=== PATIENT | male | born 1975 | race African-American/Black ===

== ENCOUNTER 2019-03-06 01:29 | Inpatient (IN) | payer SELFPAY ==
[2019-03-06] MEDS ORDERED: VANCOMYCIN HCL INJ 1000 MG VIAL IV ONE (04:01)
[2019-03-06] MEDS ORDERED: CEFEPIME 2 GM/D5W RTU 2 GM/50 ML RTUPB IV ONE (04:02)
--- NOTE | 2019-03-06 04:04 | ER Document Report ---
ED Extremity Problem, Lower - General Chief Complaint: Wound Infection Stated Complaint: TOE PAIN Time Seen by Provider: 03/06/19 03:55 Notes: Patient is a 43-year-old male with a history of type 2 diabetes that comes to the emergency department for chief complaint of swelling and pain to the left foot. He states he had a blister that developed between the great toe and the second toe, this popped and then the area started swelling and worsening. He states he does have some neuropathy and he does not feel much in his foot. He states he is constantly on his feet at his job. He denies fever/chills. Only medical history reported otherwise his hyperlipidemia. Reports his tetanus is up-to-date within 5 years. He smokes. TRAVEL OUTSIDE OF THE [place] IN LAST 30 DAYS: No - Related Data Allergies/Adverse Reactions: No Known Allergies Allergy (Unverified 03/06/19 02:15) Past Medical History - General Information source: Patient - Social History Smoking Status: Current Every Day Smoker Smoking Education Provided: Yes - <3 min Drug Abuse: None Lives with: Family Family History: Reviewed & Not Pertinent Endocrine Medical History: Reports: Hx Diabetes Mellitus Type 2 - Immunizations Hx Diphtheria, Pertussis, Tetanus Vaccination: Yes Review of Systems - Review of Systems Constitutional: No symptoms reported EENT: No symptoms reported Cardiovascular: No symptoms reported Respiratory: No symptoms reported Gastrointestinal: No symptoms reported Genitourinary: No symptoms reported Male Genitourinary: No symptoms reported Musculoskeletal: See HPI Skin: See HPI Hematologic/Lymphatic: No symptoms reported Neurological/Psychological: No symptoms reported Physical Exam - Vital signs Vitals: Temp Pulse Resp BP Pulse Ox 98.2 F 122 H 20 150/90 H 100 03/06/19 02:19 03/06/19 02:19 03/06/19 02:19 03/06/19 02:03/06/19 02:19 - Notes Notes: GENERAL: Anxious but alert and otherwise well-appearing HEAD: Normocephalic, atraumatic. EYES: Pupils equal, round, and reactive to light. Extraocular movements intact. ENT: Oral mucosa moist, tongue midline. Oropharynx unremarkable. Airway patent. Nares patent, no nasal septal hematoma, TM's intact. NECK: Full range of motion. Supple. Trachea midline. LUNGS: Clear to auscultation bilaterally, no wheezes, rales, or rhonchi. No respiratory distress. HEART: Tachycardia, normal rhythm, no murmur ABDOMEN: Soft, non-tender. Non-distended. Bowel sounds present in all 4 quadrants. GENITOURINARY: Deferred EXTREMITIES: Right lower extremity with a swollen and tender foot. Pulses intact. Extremely swollen, discolored, and also purulent aspect of the edge of the right great toe and also over the dorsal aspect. Widespread skin breakdown in addition to this. Sensation is decreased. BACK: no cervical, thoracic, lumbar midline tenderness. No saddle anesthesia, normal distal neurovascular exam. Moves all extremities in full range of motion. NEUROLOGICAL: Alert and oriented x3. Normal speech. Cranial nerves II through XII grossly intact. SKIN: Warm, dry, normal turgor. No rashes or lesions noted. Course - Re-evaluation Re-evalutation: Patient's foot is very concerning, the whole right foot is swollen, there is erythema and warmth consistent with infection, the great toe is very swollen, purulent, probably gangrenous. Patient is tachycardic but not febrile. Blood pressure is normal. CBC shows leukocytosis, hyperglycemia, no acidosis. X-ray showing small fracture, subcutaneous air, no osteomyelitis noted. Started patient on vancomycin and cefepime. Will consult with surgery. 03/06/19 06:42 Dr. Quach states that he will evaluate the patient for likely amputation procedure. He does recommend that because of his swollen foot, infection, diabetes status that he be admitted to the hospitalist with surgery consult. I spoke to Dr. France, on-call for Dr. Kimble patient's provider, patient accepted to telemetry. Patient states agreement with this plan. - Vital Signs Vital signs: Temp Pulse Resp BP Pulse Ox 99.1 F 122 H 16 136/84 H 98 03/06/19 07:58 03/06/19 02:19 03/06/19 08:01 03/06/19 08:01 03/06/19 08:01 - Laboratory Result Diagrams: 03/06/19 04:35 03/06/19 04:35 Laboratory results interpreted by me: 03/06/19 03/06/19 03/06/19 04:35 04:35 07:52 WBC 15.4 H Hgb 12.3 L Hct 37.8 L Lymphocytes % 8.0 L Absolute Neutrophils 11.7 H Absolute Monocytes 1.8 H Sodium 136.8 L Chloride 97 L Glucose 368 H POC Glucose 320 H Discharge - Discharge Clinical Impression: Swelling of right foot, Diabetic foot infection, Toe infection, Hyperglycemia Condition: Fair Disposition: ADMITTED INPATIENT Admitting Provider: Román Kimble Unit Admitted: Telemetry
[2019-03-06] MEDS ORDERED: MORPHINE SULFATE 10 MG/ML INJ IV ONE (04:08)
[2019-03-06] MEDS ORDERED: ONDANSETRON HCL INJ/PF 4 MG/2 ML SDV IV ONE (04:08)
[2019-03-06 05:17] LABS: ABSOLUTE BASOPHILS # (AUTO) 0.1 10^3/uL (0.0-0.2); ABSOLUTE EOSINOPHILS # (AUTO) 0.6 10^3/uL (0.0-0.6); ABSOLUTE LYMPHOCYTES (AUTO) 1.2 10^3/uL (0.5-4.7); ABSOLUTE MONOCYTES (AUTO) 1.8 10^3/uL (0.1-1.4); ABSOLUTE NEUT (AUTO) 11.7 10^3/uL (1.7-8.2); BASOPHILS % (AUTO) 0.6 % (0-2); EOSINOPHILS % (AUTO) 3.8 % (0-6); HEMATOCRIT 37.8 % (37.9-51.0); HEMOGLOBIN 12.3 g/dL (13.5-17.0); MEAN CORPUSCULAR HEMOGLOBIN 27.1 pg (27.0-33.4); MEAN CORPUSCULAR HGB CONC 32.6 g/dL (32.0-36.0); MEAN CORPUSCULAR VOLUME 83 fl (80-97); MONOCYTES % (AUTO) 11.6 % (3-13); PLATELET COUNT 428 10^3/uL (150-450); RED BLOOD COUNT 4.55 10^6/uL (4.35-5.55); RED CELL DISTRIBUTION WIDTH 12.6 % (11.5-14.0); TOTAL CELLS COUNTED % (AUTO) 100 %; WHITE BLOOD COUNT 15.4 10^3/uL (4.0-10.5)
[2019-03-06 05:34] LABS: ANION GAP 11 (5-19); BLOOD UREA NITROGEN 7 mg/dL (7-20); CALCIUM 9.6 mg/dL (8.4-10.2); CARBON DIOXIDE 29 mmol/L (22-30); CHLORIDE 97 mmol/L (98-107); GLUCOSE 368 mg/dL (75-110); POTASSIUM 4.8 mmol/L (3.6-5.0); SODIUM 136.8 mmol/L (137-145)
[2019-03-06] MEDS ORDERED: NORMAL SALINE 1000 ML 1,000 ML IV ONE (05:50)
--- NOTE | 2019-03-06 05:52 | RADIOLOGY REPORT (SQ) ---
EXAM DESCRIPTION: XR FOOT 3 OR MORE VIEWS COMPLETED DATE/TME: 03/06/2019 04:01 CLINICAL HISTORY: 43 years, Male, swelling, diabetic infection, ?fx, ?gas COMPARISON: None. NUMBER OF VIEWS: Four TECHNIQUE: Four views of the right foot LIMITATIONS: None. FINDINGS: There is soft tissue swelling with subcutaneous emphysema in involving the great toe. There is a nondisplaced fracture involving the tip of the first distal phalanx. The joint spaces are preserved. No definite erosion or periosteal reaction is identified. IMPRESSION: Fracture involving the tip of the first distal phalanx with surrounding soft tissue swelling with subcutaneous emphysema. No definite radiographic evidence of osteomyelitis. copyright 2010 [employer]- All Rights Reserved
[2019-03-06 10:59] LABS: APPEARANCE,URINE CLEAR; BILIRUBIN,URINE NEGATIVE (NEGATIVE); COLOR,URINE STRAW; GLUCOSE, URINE 500 mg/dL (NEGATIVE); KETONES,URINE 25 mg/dL (NEGATIVE); URINE SPECIFIC GRAVITY 1.029
[2019-03-06 11:01] LABS: LEUKOCYTE ESTERASE,URINE NEGATIVE (NEGATIVE); NITRITE,URINE NEGATIVE (NEGATIVE); PROTEIN,URINE 30 mg/dL (NEGATIVE); UROBILINOGEN,URINE NEGATIVE mg/dL (<2.0)
[2019-03-06] MEDS ORDERED: DEXTROSE 50%-WATER SYRINGE 12.5 GM/25 ML DOSE IV PRN (12:00)
[2019-03-06] MEDS ORDERED: DEXTROSE 50%-WATER SYRINGE 25 GM/50 ML DOSE IV PRN (12:00)
[2019-03-06] MEDS ORDERED: GLUCAGON,HUMAN RECOMB 1 MG INJ IM PRN ×2 (12:00→14:32)
[2019-03-06] MEDS ORDERED: DEXTROSE 40% GEL 15 GM TUBE PO PRN ×3 (12:00→14:32)
[2019-03-06] MEDS ORDERED: DEXTROSE 40% GEL 15 GM TUBE X 2 PO PRN (12:00)
[2019-03-06] MEDS ORDERED: ONDANSETRON HCL INJ/PF 4 MG/2 ML SDV ONE (13:14)
[2019-03-06] MEDS ORDERED: FENTANYL CITRATE INJ/PF 100 MCG/2 ML AMPUL ONE (13:14)
[2019-03-06] MEDS ORDERED: PROPOFOL INJ 200 MG/20 ML VIAL IV ONE (13:14)
[2019-03-06] MEDS ORDERED: MIDAZOLAM 2 MG/2 ML INJ ONE (13:14)
[2019-03-06] MEDS ORDERED: MEPERIDINE HCL/PF INJ 25 MG/1 ML DISP.SYRIN IV PRN (13:15)
[2019-03-06] MEDS ORDERED: DIPHENHYDRAMINE HCL 50 MG/ML VIAL IV PRN (13:15)
[2019-03-06] MEDS ORDERED: FENTANYL CITRATE INJ/PF 100 MCG/2 ML AMPUL IV PRN ×3 (13:15)
[2019-03-06] MEDS ORDERED: PROMETHAZINE HCL INJ 25 MG/1 ML VIAL IV PRN (13:15)
[2019-03-06] MEDS ORDERED: BUPIVACAINE HCL 0.25 % INJ/PF (2.5 MG/1 ML) 30 ML VIAL ONE (13:29)
[2019-03-06] MEDS ORDERED: LIDOCAINE 1% INJ-PF (10 MG/ML) 30 ML SDV ONE (13:29)
[2019-03-06] MEDS ORDERED: VANCOMYCIN HCL 0 MG in DEXTROSE 5%-WATER 250 ML IV NR ×2 (14:30→19:00)
[2019-03-06] MEDS ORDERED: DEXTROSE 50%-WATER 25 GM/50 ML DISP.SYRIN IV PRN ×2 (14:32)
[2019-03-06] MEDS ORDERED: INSULIN LISPRO 100 UNIT/ML 3 ML VIAL ONE (14:38)
[2019-03-06] MEDS ORDERED: INSULIN LISPRO 100 UNIT/ML 3 ML VIAL SUBCUT SCH (16:00)
[2019-03-06] MEDS: HYDROCODONE/ACETAMINOPHEN 10-325 MG TABLET PO PRN ×2 (16:03→20:27)
--- NOTE | 2019-03-06 17:03 | Operative Report ---
Nonrecallable Operative Report DATE OF SURGERY: 03/06/19 PREOPERATIVE DIAGNOSIS: 1. Severe diabetic foot infection. 2. Unsalvageable right great toe. POSTOPERATIVE DIAGNOSIS: Same as above OPERATION: Ray amputation of the right great toe. SURGEON: HOLDEN TONEY ANESTHESIA: LMAC TISSUE REMOVED OR ALTERED: Right great toe. Wound culture. COMPLICATIONS: None apparent ESTIMATED BLOOD LOSS: 20 cc PROCEDURE: Drains/implants: 4 x 4 gauze, soaked in Betadine. Procedure in detail: After informed consent was obtained, the patient was brought into the operating room and laid in the supine position. The area of the right foot was prepped and draped in a normal sterile fashion. A 10 blade scalpel was used to create a tennis racquet incision on the dorsum of the foot, over the right first metatarsal head. Dissection was carried through the subcutaneous tissue to the bone, using sharp dissection. Next the right great toe was disarticulated from the MTP joint. There was a moderate amount of purulent material surrounding the MTP joint. The toe was passed off the field, and deep tissue wound culture was obtained. After this was completed, the metatarsal head was divided using the reciprocating bone saw. Next, hemostasis was achieved. The proximal portion of the wound was closed using 2-0 Vicryl suture in simple interrupted fashion. The distal portion of the wound was left open and was packed with 4 x 4 gauze, soaked in Betadine. A dressing was then fashioned, and the procedure was concluded. All sponge, instrument, and needle counts were correct. Condition: Stable.
--- NOTE | 2019-03-06 17:12 | PDOC CONSULTATION ---
Consultation Consult Date: 03/06/19 Provider Consulted: SURGICAL SURGICALIST Consult reason:: diabetic foot infection History of Present Illness Admission Date/PCP: 03/06/19 08:08 RANJITH LYNN MD Patient complains of: Infection of the right great toe, hyperglycemia History of Present Illness: CHERRIE YUAN JR is a 43 year old male seen in consultation at the request of the Emergency Department physician. This is a patient with poorly controlled diabetes. He reports a one-week history of an ulcer to the right great toe. The ulcer became worse, and the toe began to swell. He then noticed copious amounts of purulent drainage. Patient began having swelling and erythema extending up the foot and onto the leg. Nothing makes his symptoms better or worse. The patient presents today for evaluation of his foot. Patient does report pain of the right great toe and swelling of the right foot. He denies chest pain, shortness of breath, headache, dizziness, orthostasis, malaise, fatigue, anorexia, blurry vision, melena, hematochezia, hematemesis, nausea, vomiting, abdominal pain. Past Medical History Endocrine Medical History: Reports: Diabetes Mellitus Type 2 Social History Lives with: Family Smoking Status: Current Every Day Smoker Hx Recreational Drug Use: No Hx Prescription Drug Abuse: No Family History Family History: Reviewed & Not Pertinent Parental Family History Reviewed: Yes Children Family History Reviewed: Yes Sibling(s) Family History Reviewed.: Yes Medication/Allergy Home Medications: No Home Medications 03/06/19 Allergies/Adverse Reactions: No Known Allergies Allergy (Unverified 03/06/19 02:15) Review of Systems Constitutional: ABSENT: anorexia, headache(s), weakness Eyes: ABSENT: visual disturbances Ears: ABSENT: hearing changes Nose, Mouth, and Throat: ABSENT: mouth pain, sore throat Cardiovascular: ABSENT: chest pain Respiratory: ABSENT: cough, dyspnea Gastrointestinal: ABSENT: abdominal pain, heartburn, hematemesis, hematochezia, melena, nausea, vomiting Genitourinary: ABSENT: dysuria Musculoskeletal: ABSENT: back pain Integumentary: PRESENT: erythema - Right great toe, wounds - Right great toe Neurological: ABSENT: confusion, convulsions, dizziness Psychiatric: ABSENT: anxiety, depression Endocrine: ABSENT: cold intolerance, heat intolerance Hematologic/Lymphatic: ABSENT: easy bleeding, easy bruising Physical Exam Vital Signs: Temp Pulse Resp BP Pulse Ox 98.6 F 122 H 11 L 113/73 96 03/06/19 11:07 03/06/19 02:19 03/06/19 11:00 03/06/19 11:01 03/06/19 11:01 Intake & Output 03/05/19 03/06/19 03/07/19 06:59 06:59 06:59 Intake Total 1050 Output Total 1000 Balance 50 Weight 97.7 kg General appearance: PRESENT: no acute distress Head exam: PRESENT: atraumatic, normocephalic Eye exam: PRESENT: EOMI, PERRLA. ABSENT: scleral icterus Mouth exam: PRESENT: moist, neck supple Teeth exam: ABSENT: poor dentation Neck exam: ABSENT: meningismus, tenderness, thyromegaly, tracheal deviation Respiratory exam: PRESENT: clear to auscultation theresa, unlabored. ABSENT: chest wall tenderness, tachypnea, wheezes Cardiovascular exam: PRESENT: RRR Pulses: PRESENT: normal radial pulses, other - Palpable right lower extremity dorsalis pedis pulse. GI/Abdominal exam: PRESENT: soft. ABSENT: distended, tenderness Extremities exam: PRESENT: +2 edema - Right foot. ABSENT: clubbing Neurological exam: PRESENT: alert, awake, oriented to person, oriented to place, oriented to time, oriented to situation, CN II-XII grossly intact. ABSENT: motor sensory deficit Psychiatric exam: ABSENT: agitated, anxious, depressed Focused psych exam: ABSENT: delusional Skin exam: ABSENT: cyanosis, erythema, jaundice Results Laboratory Results: 03/06/19 04:35 03/06/19 04:35 03/06/19 03/06/19 03/06/19 04:35 04:35 10:32 WBC 15.4 H RBC 4.55 Hgb 12.3 L Hct 37.8 L MCV 83 MCH 27.1 MCHC 32.6 RDW 12.6 Plt Count 428 Seg Neutrophils % 76.0 Lymphocytes % 8.0 L Monocytes % 11.6 Eosinophils % 3.8 Basophils % 0.6 Absolute Neutrophils 11.7 H Absolute Lymphocytes 1.2 Absolute Monocytes 1.8 H Absolute Eosinophils 0.6 Absolute Basophils 0.1 Sodium 136.8 L Potassium 4.8 Chloride 97 L Carbon Dioxide 29 Anion Gap 11 BUN 7 Creatinine 0.66 Est GFR ( Amer) > 60 Est GFR (Non-Af Amer) > 60 Glucose 368 H Calcium 9.6 Urine Color STRAW Urine Appearance CLEAR Urine pH 5.0 Ur Specific [place] 1.029 Urine Protein 30 H Urine Glucose (UA) 500 H Urine Ketones 25 H Urine Blood NEGATIVE Urine Nitrite NEGATIVE Ur Leukocyte Esterase NEGATIVE Urine WBC (Auto) 1 Impressions: Foot X-Ray 03/06/19 04:01 IMPRESSION: Fracture involving the tip of the first distal phalanx with surrounding soft tissue swelling with subcutaneous emphysema. No definite radiographic evidence of osteomyelitis. copyright 2010 [employer]- All Rights Reserved Assessment & Plan - Diagnosis (1) Diabetic foot infection Is this a current diagnosis for this admission?: Yes (2) Hyperglycemia Is this a current diagnosis for this admission?: Yes - Plan Summary Plan Summary: This is a 43-year-old male with a severe diabetic foot infection of the right great toe. He has severe swelling, purulent drainage, and necrotic tissue over the entirety of the right great toe. I do not see any salvageable tissue on the toe. In light of his severe infection, I have recommended amputation of the right great toe in an effort to save his foot. At this time, his foot is threatened. I will continue the patient's antibiotics, and plan for surgical intervention today. Risks/benefits discussed, informed consent obtained, and all questions answered.
[2019-03-06] MEDS ORDERED: VANCOMYCIN HCL 1,500 MG in DEXTROSE 5%-WATER 250 ML IV SCH (18:00)
[2019-03-06] MEDS: INSULIN LISPRO 100 UNIT/ML 3 ML VIAL SUBCUT SCH ×2 (18:01→22:01)
--- NOTE | 2019-03-06 18:58 | PDOC H&P ---
History of Present Illness Admission Date/PCP: 03/06/19 08:08 RANJITH LYNN MD Patient complains of: Pain and swelling in left foot History of Present Illness: CHERRIE YUAN JR is a 43 year old male patient of Dr. Lynn who presented to the ED with blister formation and progressive swelling with pain in his left foot. Patient reported formation of blister between his left foot first and second toes that got infected with associated swelling and pain. Patient reported high tolerance of pain as well as neuropathy in his feet. He did not seek medical attention on time. 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 He admitted to medication noncompliance regarding treatment of his morbidities including diabetes mellitus type 2. His last medication filling at his local pharmacy was in August, for 90 days supply. He denied any fever, chills or significant discharge from his left foot lesion. His initial evaluation in the ED was remarkable for left hallux gangrenous lesion and distal phalanx fracture. He was seen in consultation by the surgicalist and taken to operating room for left hallux amputation. Past Medical History Endocrine Medical History: Reports: Diabetes Mellitus Type 2 Psychiatric Medical History: Denies: Depression Social History Lives with: Family Smoking Status: Current Every Day Smoker Frequency of Alcohol Use: Rare Hx Recreational Drug Use: No Drugs: None Hx Prescription Drug Abuse: No - Advance Directive Resuscitation Status: Full Code Family History Family History: Reviewed & Not Pertinent Parental Family History Reviewed: Yes Children Family History Reviewed: Yes Sibling(s) Family History Reviewed.: Yes Medication/Allergy Home Medications: No Home Medications 03/06/19 Allergies/Adverse Reactions: No Known Allergies Allergy (Unverified 03/06/19 02:15) Review of Systems Constitutional: ABSENT: chills, fever(s), headache(s), weight gain, weight loss Eyes: ABSENT: visual disturbances Ears: ABSENT: hearing changes Nose, Mouth, and Throat: ABSENT: as per HPI, headache(s), mouth pain, sore throat, vertigo, other Cardiovascular: ABSENT: chest pain, dyspnea on exertion, edema, orthropnea, palpitations Respiratory: ABSENT: cough, hemoptysis Gastrointestinal: ABSENT: abdominal pain, constipation, diarrhea, hematemesis, hematochezia, nausea, vomiting Genitourinary: ABSENT: dysuria, hematuria Musculoskeletal: PRESENT: joint swelling - left hallux, other - pain in left foot Integumentary: ABSENT: rash, wounds Neurological: ABSENT: abnormal gait, abnormal speech, confusion, dizziness, focal weakness, syncope Psychiatric: ABSENT: anxiety, depression, homidical ideation, suicidal ideation Endocrine: ABSENT: cold intolerance, heat intolerance, polydipsia, polyuria Hematologic/Lymphatic: ABSENT: easy bleeding, easy bruising, lymphadenopathy Physical Exam Vital Signs: Temp Pulse Resp BP Pulse Ox 99.1 F 103 H 14 11/74 L 98 03/06/19 15:24 03/06/19 16:40 03/06/19 15:24 03/06/19 15:24 03/06/19 15:24 Intake & Output 03/05/19 03/06/19 03/07/19 06:59 06:59 06:59 Intake Total 1450 Output Total 1015 Balance 435 Weight 97.7 kg General appearance: PRESENT: mild distress - due to pain in left foot, well- developed, well-nourished Head exam: PRESENT: atraumatic, normocephalic Eye exam: PRESENT: conjunctiva pink, EOMI, PERRLA. ABSENT: scleral icterus Ear exam: PRESENT: normal external ear exam Mouth exam: PRESENT: moist Respiratory exam: PRESENT: clear to auscultation theresa Cardiovascular exam: PRESENT: RRR. ABSENT: diastolic murmur, rubs, systolic murmur Pulses: PRESENT: normal dorsalis pedis pul - right foot, +2 pedal pulses bilateral - right foot Vascular exam: PRESENT: normal capillary refill. ABSENT: pallor GI/Abdominal exam: PRESENT: normal bowel sounds, soft. ABSENT: distended, guarding, mass, organolmegaly, rebound, tenderness Rectal exam: PRESENT: deferred Extremities exam: PRESENT: other - post left hallux amputation. ABSENT: pedal edema Musculoskeletal exam: PRESENT: tenderness - post left hallux amputation Neurological exam: PRESENT: alert, awake, oriented to person, oriented to place, oriented to time, oriented to situation, CN II-XII grossly intact. ABSENT: motor sensory deficit Psychiatric exam: PRESENT: appropriate affect, normal mood. ABSENT: homicidal ideation, suicidal ideation Skin exam: PRESENT: dry, warm, other - post left hallux amputation dressing intact. Results Laboratory Results: 03/06/19 04:35 03/06/19 04:35 03/06/19 03/06/19 03/06/19 04:35 04:35 10:32 WBC 15.4 H RBC 4.55 Hgb 12.3 L Hct 37.8 L MCV 83 MCH 27.1 MCHC 32.6 RDW 12.6 Plt Count 428 Seg Neutrophils % 76.0 Lymphocytes % 8.0 L Monocytes % 11.6 Eosinophils % 3.8 Basophils % 0.6 Absolute Neutrophils 11.7 H Absolute Lymphocytes 1.2 Absolute Monocytes 1.8 H Absolute Eosinophils 0.6 Absolute Basophils 0.1 Sodium 136.8 L Potassium 4.8 Chloride 97 L Carbon Dioxide 29 Anion Gap 11 BUN 7 Creatinine 0.66 Est GFR ( Amer) > 60 Est GFR (Non-Af Amer) > 60 Glucose 368 H Calcium 9.6 Urine Color STRAW Urine Appearance CLEAR Urine pH 5.0 Ur Specific [place] 1.029 Urine Protein 30 H Urine Glucose (UA) 500 H Urine Ketones 25 H Urine Blood NEGATIVE Urine Nitrite NEGATIVE Ur Leukocyte Esterase NEGATIVE Urine WBC (Auto) 1 Impressions: Foot X-Ray 03/06/19 04:01 IMPRESSION: Fracture involving the tip of the first distal phalanx with surrounding soft tissue swelling with subcutaneous emphysema. No definite radiographic evidence of osteomyelitis. copyright 2010 [employer]- All Rights Reserved Assessment & Plan - Diagnosis (1) Uncontrolled type 2 diabetes mellitus Qualifiers: Glycemic state: with hyperglycemia Qualified Code(s): E11.65 - Type 2 diabetes mellitus with hyperglycemia Is this a current diagnosis for this admission?: Yes Plan: See admitting attending physician orders for details of care plan. (2) Diabetic foot infection Is this a current diagnosis for this admission?: Yes Plan: Maintain on IV Cefepime and Vancomycin coverage. Follow up on wound culture findings. (3) Fracture of toe of right foot Qualifiers: Encounter type: initial encounter Toe: great toe Fracture type: closed Phalanx: distal Fracture alignment: nondisplaced Qualified Code(s): S92.424A - Nondisplaced fracture of distal phalanx of right great toe, initial encounter for closed fracture Is this a current diagnosis for this admission?: Yes Plan: s/p Ray amputation of hallux. Continue wound care and pain management. (4) Toe infection Is this a current diagnosis for this admission?: Yes Plan: Maintain on IV Cefepime and Vancomycin coverage. Follow up on wound culture findings. - Time Time Spent: 50 to 70 Minutes Medications reviewed and adjusted accordingly: Yes Anticipated discharge: Home - with outpatient wound care upon discharge as ne eded. Within: Other - Inpatient Certification Based on my medical assessment, after consideration of the patient's comorbidities, presenting symptoms, or acuity I expect that the services needed warrant INPATIENT care.: Yes I certify that my determination is in accordance with my understanding of Medicare's requirements for reasonable and necessary INPATIENT services [42 CFR 412.3e].: Yes Medical Necessity: Significant Comorbidiites Make Outpatient Treatment Too Risky, Need Close Monitoring Due to Risk of Patient Decompensation, Need For IV Fluids, Need For Continuous Telemetry Monitoring, Need for Pain Control, Need for IV Antibiotics, Need for Surgery, Risk of Complication if Not Cared For in Hospital, Risk of Diagnosis Which Will Require Inpatient Eval/Care/Monitoring Post Hospital Care: D/C Hearing Examiner Documentation - Plan Summary Plan Summary: See admitting attending physician orders for details of care plan. Maintain on IV Cefepime and Vancomycin coverage. Follow up on wound culture findings.
[2019-03-06] MEDS ORDERED: ACETAMINOPHEN 325 MG TABLET PO PRN (19:04)
[2019-03-06] MEDS: FAMOTIDINE 20 MG TABLET PO SCH (22:00)
[2019-03-06] MEDS: KETOROLAC TROMETHAMINE INJ/PF 30 MG/1 ML SDV IV SCH (22:00)
[2019-03-06] MEDS: CEFEPIME 1 GM/D5W RTU 1 GM/50 ML RTUPB IV SCH (22:01)
[2019-03-06] MEDS: NORMAL SALINE 1000 ML 1,000 ML IV PRN (23:00)
--- NOTE | 2019-03-06 23:52 | EKG REPORT ---
SEVERITY:- NORMAL ECG - SINUS RHYTHM : Confirmed by: Jayden Palacios 06-Mar-2019 23:51:51
[2019-03-07] MEDS: HYDROCODONE/ACETAMINOPHEN 10-325 MG TABLET PO PRN (01:03)
[2019-03-07] MEDS: MORPHINE SULFATE 10 MG/ML INJ IV PRN ×3 (03:17→12:44)
[2019-03-07 05:07] LABS: ABSOLUTE BASOPHILS # (AUTO) 0.1 10^3/uL (0.0-0.2); ABSOLUTE EOSINOPHILS # (AUTO) 0.7 10^3/uL (0.0-0.6); ABSOLUTE LYMPHOCYTES (AUTO) 1.2 10^3/uL (0.5-4.7); ABSOLUTE MONOCYTES (AUTO) 0.8 10^3/uL (0.1-1.4); ABSOLUTE NEUT (AUTO) 6.6 10^3/uL (1.7-8.2); BASOPHILS % (AUTO) 0.9 % (0-2); HEMATOCRIT 32.5 % (37.9-51.0); HEMOGLOBIN 10.5 g/dL (13.5-17.0); LYMPHOCYTES % (AUTO) 13.1 % (13-45); MEAN CORPUSCULAR HEMOGLOBIN 26.7 pg (27.0-33.4); MEAN CORPUSCULAR HGB CONC 32.3 g/dL (32.0-36.0); MEAN CORPUSCULAR VOLUME 83 fl (80-97); MONOCYTES % (AUTO) 8.6 % (3-13); PLATELET COUNT 344 10^3/uL (150-450); RED BLOOD COUNT 3.93 10^6/uL (4.35-5.55); SEGMENTED NEUTROPHILS % (AUTO) 70.4 % (42-78); TOTAL CELLS COUNTED % (AUTO) 100 %; WHITE BLOOD COUNT 9.4 10^3/uL (4.0-10.5)
[2019-03-07 05:28] LABS: ALANINE AMINOTRANSFERASE 30 U/L (21-72); ALBUMIN 2.6 g/dL (3.5-5.0); ALKALINE PHOSPHATASE 111 U/L (38-126); ANION GAP 7 (5-19); ASPARTATE AMINO TRANSFERASE 23 U/L (17-59); BILIRUBIN,DIRECT 0.2 mg/dL (0.0-0.4); BILIRUBIN,TOTAL 0.2 mg/dL (0.2-1.3); BLOOD UREA NITROGEN 12 mg/dL (7-20); CALCIUM 8.2 mg/dL (8.4-10.2); CARBON DIOXIDE 26 mmol/L (22-30); CHLORIDE 102 mmol/L (98-107); CHOLESTEROL 142.95 mg/dL (0-200); GLUCOSE 381 mg/dL (75-110); POTASSIUM 4.8 mmol/L (3.6-5.0); SODIUM 135.3 mmol/L (137-145); TOTAL PROTEIN 6.1 g/dL (6.3-8.2); TRIGLYCERIDES 67 mg/dL (<150)
[2019-03-07 05:39] LABS: DIRECT LDL 90 mg/dL (<100)
[2019-03-07] MEDS: KETOROLAC TROMETHAMINE INJ/PF 30 MG/1 ML SDV IV SCH ×3 (06:00→22:08)
[2019-03-07] MEDS: INSULIN LISPRO 100 UNIT/ML 3 ML VIAL SUBCUT SCH ×4 (07:02→22:09)
--- NOTE | 2019-03-07 09:22 | PDOC PROGRESS REPORT ---
Subjective Progress Note for:: 03/07/19 Subjective:: Patient has no complaints, laying in bed with leg elevated. Reason For Visit: DIABETIC RIGHT FOOT INFECTION Physical Exam Vital Signs: Temp Pulse Resp BP Pulse Ox 98.5 F 98 14 128/87 H 98 03/07/19 07:43 03/07/19 07:43 03/07/19 07:43 03/07/19 07:43 03/07/19 07:43 Intake & Output 03/06/19 03/07/19 03/08/19 06:59 06:59 06:59 Intake Total 2710 Output Total 1015 Balance 1695 Weight 97.7 kg 97.7 kg General appearance: PRESENT: no acute distress Musculoskeletal exam: PRESENT: other - Dressing removed; no foul smell or active drainage. All packing removed. Cavity reasonably clean. Some postoperative scar. Flaps to amputation site viable. Mild to moderate swelling, no discrete erythema. Results Laboratory Results: 03/07/19 04:28 03/07/19 04:28 03/06/19 03/07/19 03/07/19 10:32 04:28 04:28 WBC 9.4 RBC 3.93 L Hgb 10.5 L Hct 32.5 L MCV 83 MCH 26.7 L MCHC 32.3 RDW 12.0 Plt Count 344 Seg Neutrophils % 70.4 Lymphocytes % 13.1 Monocytes % 8.6 Eosinophils % 7.0 H Basophils % 0.9 Absolute Neutrophils 6.6 Absolute Lymphocytes 1.2 Absolute Monocytes 0.8 Absolute Eosinophils 0.7 H Absolute Basophils 0.1 Sodium 135.3 L Potassium 4.8 Chloride 102 Carbon Dioxide 26 Anion Gap 7 BUN 12 Creatinine 0.82 Est GFR ( Amer) > 60 Est GFR (Non-Af Amer) > 60 Glucose 381 H Calcium 8.2 L Total Bilirubin 0.2 AST 23 ALT 30 Alkaline Phosphatase 111 Total Protein 6.1 L Albumin 2.6 L Triglycerides 67 Cholesterol 142.95 LDL Cholesterol Direct 90 VLDL Cholesterol 13.0 HDL Cholesterol 34 L Urine Color STRAW Urine Appearance CLEAR Urine pH 5.0 Ur Specific [place] 1.029 Urine Protein 30 H Urine Glucose (UA) 500 H Urine Ketones 25 H Urine Blood NEGATIVE Urine Nitrite NEGATIVE Ur Leukocyte Esterase NEGATIVE Urine WBC (Auto) 1 Impressions: Foot X-Ray 03/06/19 04:01 IMPRESSION: Fracture involving the tip of the first distal phalanx with surrounding soft tissue swelling with subcutaneous emphysema. No definite radiographic evidence of osteomyelitis. copyright 2010 [employer]- All Rights Reserved Assessment & Plan - Diagnosis (1) Diabetic foot infection Is this a current diagnosis for this admission?: Yes Plan: Impression: 1 day status post right great toe amputation, with wound left open, appears stable; septic source under control. Recommendations: 1. Continue local wound care, leg elevation and intravenous antibiotics; await sensitivities 2. Anticipate wound VAC placement tomorrow. 3. Hopefully patient can be discharged home midweek, managed on outpatient basis with [facility].
[2019-03-07] MEDS: ENOXAPARIN SODIUM INJ 40 MG/0.4 ML DISP.SYRIN SUBCUT SCH (10:05)
[2019-03-07] MEDS: FAMOTIDINE 20 MG TABLET PO SCH ×2 (10:05→22:07)
[2019-03-07] MEDS: CEFEPIME 1 GM/D5W RTU 1 GM/50 ML RTUPB IV SCH ×2 (10:06→22:08)
[2019-03-07] MEDS: VANCOMYCIN HCL 1,500 MG in DEXTROSE 5%-WATER 250 ML IV SCH ×2 (11:01→17:30)
[2019-03-07] MEDS: NORMAL SALINE 1000 ML 1,000 ML IV PRN (12:56)
--- NOTE | 2019-03-07 21:31 | PDOC PROGRESS REPORT ---
Subjective Progress Note for:: 03/07/19 Subjective:: Patient is extremely noncompliant, status post amputation right big toe, the last time he was in the office was August this year and at the time the hemoglobin A1c was more than 15 Reason For Visit: DIABETIC RIGHT FOOT INFECTION Physical Exam Vital Signs: Temp Pulse Resp BP Pulse Ox 97.9 F 88 16 105/79 96 03/07/19 15:10 03/07/19 19:00 03/07/19 15:10 03/07/19 15:10 03/07/19 15:10 Intake & Output 03/06/19 03/07/19 03/08/19 06:59 06:59 06:59 Intake Total 2710 2488 Output Total 1015 Balance 1695 2488 Weight 97.7 kg 97.7 kg General appearance: PRESENT: no acute distress Eye exam: PRESENT: PERRLA Respiratory exam: PRESENT: clear to auscultation theresa Cardiovascular exam: PRESENT: +S1, +S2 Results Laboratory Results: 03/07/19 04:28 03/07/19 04:28 03/07/19 03/07/19 04:28 04:28 WBC 9.4 RBC 3.93 L Hgb 10.5 L Hct 32.5 L MCV 83 MCH 26.7 L MCHC 32.3 RDW 12.0 Plt Count 344 Seg Neutrophils % 70.4 Lymphocytes % 13.1 Monocytes % 8.6 Eosinophils % 7.0 H Basophils % 0.9 Absolute Neutrophils 6.6 Absolute Lymphocytes 1.2 Absolute Monocytes 0.8 Absolute Eosinophils 0.7 H Absolute Basophils 0.1 Sodium 135.3 L Potassium 4.8 Chloride 102 Carbon Dioxide 26 Anion Gap 7 BUN 12 Creatinine 0.82 Est GFR ( Amer) > 60 Est GFR (Non-Af Amer) > 60 Glucose 381 H Calcium 8.2 L Total Bilirubin 0.2 AST 23 ALT 30 Alkaline Phosphatase 111 Total Protein 6.1 L Albumin 2.6 L Triglycerides 67 Cholesterol 142.95 LDL Cholesterol Direct 90 VLDL Cholesterol 13.0 HDL Cholesterol 34 L Impressions: Foot X-Ray 03/06/19 04:01 IMPRESSION: Fracture involving the tip of the first distal phalanx with surrounding soft tissue swelling with subcutaneous emphysema. No definite radiographic evidence of osteomyelitis. copyright 2011 [employer]- All Rights Reserved Assessment & Plan - Diagnosis (1) Diabetic foot infection Is this a current diagnosis for this admission?: Yes Plan: Continue IV antibiotic (2) Uncontrolled type 2 diabetes mellitus Qualifiers: Glycemic state: with hyperglycemia Qualified Code(s): E11.65 - Type 2 diabetes mellitus with hyperglycemia Is this a current diagnosis for this admission?: Yes
[2019-03-07] MEDS: SITAGLIPTIN PHOSPHATE 50 MG TABLET PO SCH (22:07)
[2019-03-07] MEDS: METFORMIN HCL 500 MG TABLET PO SCH (22:08)
[2019-03-08] MEDS: NORMAL SALINE 1000 ML 1,000 ML IV PRN ×3 (01:47→23:33)
[2019-03-08] MEDS: VANCOMYCIN HCL 1,500 MG in DEXTROSE 5%-WATER 250 ML IV SCH (01:48)
[2019-03-08] MEDS: KETOROLAC TROMETHAMINE INJ/PF 30 MG/1 ML SDV IV SCH ×3 (05:29→21:57)
[2019-03-08] MEDS: INSULIN LISPRO 100 UNIT/ML 3 ML VIAL SUBCUT SCH ×4 (07:28→22:00)
[2019-03-08] MEDS: SITAGLIPTIN PHOSPHATE 50 MG TABLET PO SCH ×2 (07:28→15:34)
[2019-03-08] MEDS: METFORMIN HCL 500 MG TABLET PO SCH ×2 (07:28→15:34)
[2019-03-08] MEDS: FAMOTIDINE 20 MG TABLET PO SCH ×2 (10:12→21:57)
[2019-03-08] MEDS: ENOXAPARIN SODIUM INJ 40 MG/0.4 ML DISP.SYRIN SUBCUT SCH (10:12)
[2019-03-08] MEDS: AMPICILLIN SODIUM/SULBACTAM NA 3 GM in NORMAL SALINE 100 ML IV SCH ×3 (12:19→23:30)
--- NOTE | 2019-03-08 15:57 | PDOC PROGRESS REPORT ---
Subjective Progress Note for:: 03/08/19 Subjective:: No complaints Reason For Visit: DIABETIC RIGHT FOOT INFECTION Physical Exam Vital Signs: Temp Pulse Resp BP Pulse Ox 98.1 F 93 16 140/81 H 99 03/08/19 12:00 03/08/19 14:00 03/08/19 12:00 03/08/19 12:00 03/08/19 12:00 Intake & Output 03/07/19 03/08/19 03/09/19 06:59 06:59 06:59 Intake Total 2710 3788 1100 Output Total 1015 Balance 1695 3788 1100 Weight 97.7 kg 104.6 kg General appearance: PRESENT: no acute distress, cooperative Extremities exam: PRESENT: other - Foot wound is clean with a minimal erythema. Minimal drainage. Results Laboratory Results: 03/07/19 04:28 03/08/19 09:04 03/08/19 09:04 Creatinine 0.49 L Est GFR ( Amer) > 60 Est GFR (Non-Af Amer) > 60 Impressions: Foot X-Ray 03/06/19 04:01 IMPRESSION: Fracture involving the tip of the first distal phalanx with surrounding soft tissue swelling with subcutaneous emphysema. No definite radiographic evidence of osteomyelitis. copyright 2010 [employer]- All Rights Reserved Assessment & Plan - Diagnosis (1) Diabetic foot infection Is this a current diagnosis for this admission?: Yes Plan: Status post great toe amputation. Wound looks good. Will place wound VAC. Change antibiotics to Unasyn based on cultures. Likely discharge patient home by the end of the week.
--- NOTE | 2019-03-08 21:28 | PDOC PROGRESS REPORT ---
Subjective Progress Note for:: 03/08/19 Subjective:: Patient seen by the bedside Reason For Visit: DIABETIC RIGHT FOOT INFECTION Physical Exam Vital Signs: Temp Pulse Resp BP Pulse Ox 98.1 F 83 16 140/81 H 99 03/08/19 12:00 03/08/19 19:00 03/08/19 12:00 03/08/19 12:00 03/08/19 12:00 Intake & Output 03/07/19 03/08/19 03/09/19 06:59 06:59 06:59 Intake Total 2710 3788 1100 Output Total 1015 Balance 1695 3788 1100 Weight 97.7 kg 104.6 kg General appearance: PRESENT: no acute distress Eye exam: PRESENT: PERRLA Cardiovascular exam: PRESENT: +S1, +S2 GI/Abdominal exam: PRESENT: soft Neurological exam: PRESENT: alert Results Laboratory Results: 03/07/19 04:28 03/08/19 09:04 03/08/19 09:04 Creatinine 0.49 L Est GFR ( Amer) > 60 Est GFR (Non-Af Amer) > 60 Impressions: Foot X-Ray 03/06/19 04:01 IMPRESSION: Fracture involving the tip of the first distal phalanx with surrounding soft tissue swelling with subcutaneous emphysema. No definite radiographic evidence of osteomyelitis. copyright 2010 [employer]- All Rights Reserved Assessment & Plan - Diagnosis (1) Diabetic foot infection Is this a current diagnosis for this admission?: Yes (2) Uncontrolled type 2 diabetes mellitus Qualifiers: Glycemic state: with hyperglycemia Qualified Code(s): E11.65 - Type 2 diabetes mellitus with hyperglycemia Is this a current diagnosis for this admission?: Yes
[2019-03-08] MEDS: MORPHINE SULFATE 10 MG/ML INJ IV PRN (21:57)
[2019-03-09] MEDS: MORPHINE SULFATE 10 MG/ML INJ IV PRN ×3 (02:14→21:36)
[2019-03-09] MEDS: KETOROLAC TROMETHAMINE INJ/PF 30 MG/1 ML SDV IV SCH ×3 (05:50→21:37)
[2019-03-09] MEDS: AMPICILLIN SODIUM/SULBACTAM NA 3 GM in NORMAL SALINE 100 ML IV SCH ×3 (05:50→17:03)
[2019-03-09] MEDS: SITAGLIPTIN PHOSPHATE 50 MG TABLET PO SCH ×2 (07:29→15:16)
[2019-03-09] MEDS: INSULIN LISPRO 100 UNIT/ML 3 ML VIAL SUBCUT SCH ×4 (07:29→21:37)
[2019-03-09] MEDS: METFORMIN HCL 500 MG TABLET PO SCH ×2 (07:29→15:16)
--- NOTE | 2019-03-09 09:00 | PDOC PROGRESS REPORT ---
Subjective Progress Note for:: 03/09/19 Subjective:: feels well Reason For Visit: DIABETIC RIGHT FOOT INFECTION Physical Exam Vital Signs: Temp Pulse Resp BP Pulse Ox 98.2 F 84 18 132/89 H 98 03/09/19 07:28 03/09/19 07:28 03/09/19 07:28 03/09/19 07:28 03/09/19 07:28 Intake & Output 03/08/19 03/09/19 03/10/19 06:59 06:59 06:59 Intake Total 3788 3606 Output Total 400 Balance 3788 3206 Weight 104.6 kg 104.4 kg General appearance: PRESENT: no acute distress Eye exam: PRESENT: EOMI Mouth exam: PRESENT: moist Neck exam: PRESENT: full ROM GI/Abdominal exam: PRESENT: soft Rectal exam: PRESENT: deferred Extremities exam: PRESENT: other - rt great toe with wound vac in place foot with min swelling wound clean min drainage Neurological exam: PRESENT: alert, awake, oriented to person Skin exam: PRESENT: dry - s/p rt great toe amputatin wound clean with wound vac in place pt could be dicharged home from surgery stanpt will need surgery clinic f/u in 1 wk after discharge will need home health for wound care and wound vac changes. please call for surgery for additional problems. Results Laboratory Results: 03/07/19 04:28 03/08/19 09:04 03/08/19 09:04 Creatinine 0.49 L Est GFR ( Amer) > 60 Est GFR (Non-Af Amer) > 60 03/06/19 13:56 Toe - Right Big Toe Gram Stain - Final Impressions: Foot X-Ray 03/06/19 04:01 IMPRESSION: Fracture involving the tip of the first distal phalanx with surrounding soft tissue swelling with subcutaneous emphysema. No definite radiographic evidence of osteomyelitis. copyright 2010 [email or web address]- All Rights Reserved
[2019-03-09] MEDS: FAMOTIDINE 20 MG TABLET PO SCH ×2 (09:27→21:36)
[2019-03-09] MEDS: ENOXAPARIN SODIUM INJ 40 MG/0.4 ML DISP.SYRIN SUBCUT SCH (09:27)
[2019-03-09] MEDS: NORMAL SALINE 1000 ML 1,000 ML IV PRN ×2 (11:15→21:38)
--- NOTE | 2019-03-09 19:41 | PDOC PROGRESS REPORT ---
Subjective Progress Note for:: 03/09/19 Subjective:: Patient seen by the bedside he has financial issue, no medical insurance, he cannot tolerate the wound VAC Reason For Visit: DIABETIC RIGHT FOOT INFECTION Physical Exam Vital Signs: Temp Pulse Resp BP Pulse Ox 98.5 F 89 16 134/84 H 99 03/09/19 12:00 03/09/19 19:00 03/09/19 12:00 03/09/19 12:00 03/09/19 12:00 Intake & Output 03/08/19 03/09/19 03/10/19 06:59 06:59 06:59 Intake Total 3788 3606 2073 Output Total 400 750 Balance 3788 3206 1323 Weight 104.6 kg 104.4 kg General appearance: PRESENT: no acute distress Eye exam: PRESENT: PERRLA Respiratory exam: PRESENT: clear to auscultation theresa Cardiovascular exam: PRESENT: +S1, +S2 Results Laboratory Results: 03/07/19 04:28 03/08/19 09:04 03/06/19 04:35 Toe - Right Big Toe Gram Stain - Final 03/06/19 13:56 Toe - Right Big Toe Gram Stain - Final Impressions: Foot X-Ray 03/06/19 04:01 IMPRESSION: Fracture involving the tip of the first distal phalanx with surrounding soft tissue swelling with subcutaneous emphysema. No definite radiographic evidence of osteomyelitis. copyright 2011 [employer]- All Rights Reserved Assessment & Plan - Diagnosis (1) Diabetic foot infection Is this a current diagnosis for this admission?: Yes Plan: Continue IV antibiotic (2) Uncontrolled type 2 diabetes mellitus Qualifiers: Glycemic state: with hyperglycemia Qualified Code(s): E11.65 - Type 2 diabetes mellitus with hyperglycemia Is this a current diagnosis for this admission?: Yes
[2019-03-10] MEDS: AMPICILLIN SODIUM/SULBACTAM NA 3 GM in NORMAL SALINE 100 ML IV SCH ×4 (00:07→17:41)
[2019-03-10] MEDS: MORPHINE SULFATE 10 MG/ML INJ IV PRN ×3 (04:30→15:54)
[2019-03-10] MEDS: KETOROLAC TROMETHAMINE INJ/PF 30 MG/1 ML SDV IV SCH ×3 (05:20→21:28)
[2019-03-10] MEDS: SITAGLIPTIN PHOSPHATE 50 MG TABLET PO SCH ×2 (07:46→16:56)
[2019-03-10] MEDS: INSULIN LISPRO 100 UNIT/ML 3 ML VIAL SUBCUT SCH ×4 (07:46→21:34)
[2019-03-10] MEDS: METFORMIN HCL 500 MG TABLET PO SCH ×2 (07:46→16:57)
[2019-03-10] MEDS: NORMAL SALINE 1000 ML 1,000 ML IV PRN (10:16)
[2019-03-10] MEDS: FAMOTIDINE 20 MG TABLET PO SCH ×2 (10:17→21:28)
[2019-03-10] MEDS: ENOXAPARIN SODIUM INJ 40 MG/0.4 ML DISP.SYRIN SUBCUT SCH (10:18)
[2019-03-10] MEDS: HYDROCODONE/ACETAMINOPHEN 10-325 MG TABLET PO PRN ×2 (12:14→21:27)
--- NOTE | 2019-03-10 20:20 | PDOC PROGRESS REPORT ---
Subjective Progress Note for:: 03/10/19 Subjective:: Patient seen by the bedside,continue present treatment Reason For Visit: DIABETIC RIGHT FOOT INFECTION Physical Exam Vital Signs: Temp Pulse Resp BP Pulse Ox 97.6 F 84 16 144/100 H 98 03/10/19 19:43 03/10/19 19:43 03/10/19 19:43 03/10/19 19:43 03/10/19 19:43 Intake & Output 03/09/19 03/10/19 03/11/19 06:59 06:59 06:59 Intake Total 3606 4013 2150 Output Total 400 1950 Balance 3206 2063 2150 Weight 104.4 kg 106.3 kg 106.3 kg General appearance: PRESENT: no acute distress Eye exam: PRESENT: PERRLA Respiratory exam: PRESENT: clear to auscultation theresa Cardiovascular exam: PRESENT: +S1, +S2 GI/Abdominal exam: PRESENT: soft Neurological exam: PRESENT: alert Results Laboratory Results: 03/07/19 04:28 03/08/19 09:04 03/06/19 04:35 Toe - Right Big Toe Gram Stain - Final 03/06/19 04:35 Toe - Right Big Toe Wound Culture - Final Proteus Mirabilis Group B Beta Streptococcus Staphylococcus Aureus 03/06/19 13:56 Toe - Right Big Toe Gram Stain - Final 03/06/19 13:56 Toe - Right Big Toe Wound Culture - Final Proteus Mirabilis Group B Beta Streptococcus Staphylococcus Aureus Impressions: Foot X-Ray 03/06/19 04:01 IMPRESSION: Fracture involving the tip of the first distal phalanx with surrounding soft tissue swelling with subcutaneous emphysema. No definite radiographic evidence of osteomyelitis. copyright 2011 [email or web address]- All Rights Reserved Assessment & Plan - Diagnosis (1) Diabetic foot infection Is this a current diagnosis for this admission?: Yes Plan: Continue IV antibiotic (2) Uncontrolled type 2 diabetes mellitus Qualifiers: Glycemic state: with hyperglycemia Qualified Code(s): E11.65 - Type 2 diabetes mellitus with hyperglycemia Is this a current diagnosis for this admission?: Yes
--- NOTE | 2019-03-10 20:22 | PDOC PROGRESS REPORT ---
Subjective Progress Note for:: 03/10/19 Subjective:: No complaints Reason For Visit: DIABETIC RIGHT FOOT INFECTION Physical Exam Vital Signs: Temp Pulse Resp BP Pulse Ox 97.6 F 84 16 144/100 H 98 03/10/19 19:43 03/10/19 19:43 03/10/19 19:43 03/10/19 19:43 03/10/19 19:43 Intake & Output 03/09/19 03/10/19 03/11/19 06:59 06:59 06:59 Intake Total 3606 4013 2150 Output Total 400 1950 Balance 3206 2063 2150 Weight 104.4 kg 106.3 kg 106.3 kg General appearance: PRESENT: no acute distress, cooperative Extremities exam: PRESENT: other - Foot wound with wound VAC in place. No surrounding erythema. Results Laboratory Results: 03/07/19 04:28 03/08/19 09:04 03/06/19 04:35 Toe - Right Big Toe Gram Stain - Final 03/06/19 04:35 Toe - Right Big Toe Wound Culture - Final Proteus Mirabilis Group B Beta Streptococcus Staphylococcus Aureus 03/06/19 13:56 Toe - Right Big Toe Gram Stain - Final 03/06/19 13:56 Toe - Right Big Toe Wound Culture - Final Proteus Mirabilis Group B Beta Streptococcus Staphylococcus Aureus Impressions: Foot X-Ray 03/06/19 04:01 IMPRESSION: Fracture involving the tip of the first distal phalanx with surrounding soft tissue swelling with subcutaneous emphysema. No definite radiographic evidence of osteomyelitis. copyright 2010 [employer]- All Rights Reserved Assessment & Plan - Diagnosis (1) Diabetic foot infection Is this a current diagnosis for this admission?: Yes Plan: Status post great toe amputation. Although a wound VAC would be ideal in helping this wound heal faster, financial realities may preclude this treatment at home. In that case, a wet-to-dry dressing may be done with follow-up at the wound care center. without appropriate follow up, he is likely to return with worsened infection that may lead to a leg amputation. With the infection under control, couple weeks of augmentin at home would likely suffice. Surgicalist service signing off provided tonight's cbc ok.
[2019-03-10] MEDS: VALSARTAN 160 MG TABLET PO SCH (21:28)
[2019-03-10 22:01] LABS: ABSOLUTE EOSINOPHILS # (AUTO) 0.5 10^3/uL (0.0-0.6); ABSOLUTE LYMPHOCYTES (AUTO) 0.8 10^3/uL (0.5-4.7); ABSOLUTE MONOCYTES (AUTO) 0.4 10^3/uL (0.1-1.4); ABSOLUTE NEUT (AUTO) 3.5 10^3/uL (1.7-8.2); BASOPHILS % (AUTO) 0.8 % (0-2); EOSINOPHILS % (AUTO) 9.5 % (0-6); HEMATOCRIT 34.3 % (37.9-51.0); HEMOGLOBIN 11.2 g/dL (13.5-17.0); LYMPHOCYTES % (AUTO) 14.8 % (13-45); MEAN CORPUSCULAR HEMOGLOBIN 26.8 pg (27.0-33.4); MEAN CORPUSCULAR HGB CONC 32.6 g/dL (32.0-36.0); MEAN CORPUSCULAR VOLUME 82 fl (80-97); MONOCYTES % (AUTO) 8.1 % (3-13); PLATELET COUNT 391 10^3/uL (150-450); RED BLOOD COUNT 4.17 10^6/uL (4.35-5.55); RED CELL DISTRIBUTION WIDTH 12.2 % (11.5-14.0); SEGMENTED NEUTROPHILS % (AUTO) 66.8 % (42-78); TOTAL CELLS COUNTED % (AUTO) 100 %; WHITE BLOOD COUNT 5.2 10^3/uL (4.0-10.5)
[2019-03-11] MEDS: AMPICILLIN SODIUM/SULBACTAM NA 3 GM in NORMAL SALINE 100 ML IV SCH ×5 (00:26→23:30)
[2019-03-11] MEDS: MORPHINE SULFATE 10 MG/ML INJ IV PRN ×3 (05:24→18:09)
[2019-03-11] MEDS: KETOROLAC TROMETHAMINE INJ/PF 30 MG/1 ML SDV IV SCH ×2 (05:40→14:29)
[2019-03-11] MEDS: INSULIN LISPRO 100 UNIT/ML 3 ML VIAL SUBCUT SCH ×4 (08:01→21:46)
[2019-03-11] MEDS: METFORMIN HCL 500 MG TABLET PO SCH ×2 (08:02→16:25)
[2019-03-11] MEDS: SITAGLIPTIN PHOSPHATE 50 MG TABLET PO SCH ×2 (08:02→16:25)
[2019-03-11] MEDS: FAMOTIDINE 20 MG TABLET PO SCH ×2 (10:10→21:46)
[2019-03-11] MEDS: VALSARTAN 160 MG TABLET PO SCH (10:10)
[2019-03-11] MEDS: ENOXAPARIN SODIUM INJ 40 MG/0.4 ML DISP.SYRIN SUBCUT SCH (10:10)
[2019-03-11] MEDS: NORMAL SALINE 1000 ML 1,000 ML IV PRN ×2 (11:05→21:47)
--- NOTE | 2019-03-11 18:14 | Progress Note ---
Provider Note Provider Note: ID Consult Note Asked to review patient's chart. Pt not seen or examined. Pt is a 43 year old obese man with PMH including poorly controlled T2DM who presented on 03/06/19 with c/o 1 week ulcer to R great toe that became accompanied by swelling, purulent drainage, and redness extending to his foot and leg. On exam he was appreciated to have 2+ edema in the R foot, purulent drainage and necrotic tissue over the R 1st toe. plain filsm of the foot showed fracture involving distal phalanx with soft tissue swelling and subcutaneous gas. Pt was taken to the OR on 03/06/19 and had the toe disarticulated from the MTP joint; per operative note, there was purulent material surrounding the MTP joint. Cultures grew MSSA, Group B Strep and Proteus mirabilis. Path report from the submitted specimen showed gangrenous inflammation fo the soft tissue with acute osteomyelitis. The bone margin was read as negative for inflammation. Impression/Recommendations polymicrobial diabetic foot infection with osteomyelitis involving R 1st toe - If all of the osteomyelitic bone was resected, a short course of antibiotics directed against residual soft tissue infection or cellulitis is appropriate, and Augmentin will cover the pathogens isolated from his culture. Most patients with skin and soft tissue infections do well with 12 weeks of treatment, depending on the response; discontinue when clinical signs and symptoms of infection have resolved. Considering he has already received around 4-5 days of effective antimicrobial therapy in house and has minimal erythema noted at this point, he might not need much more at all. There is no good evidence to support continuing until wound has healed to accelerate healing or prevent infection. Dave August MD [facility] Infectious Diseases pager [phone]
--- NOTE | 2019-03-11 21:43 | PDOC PROGRESS REPORT ---
Subjective Progress Note for:: 03/11/19 Subjective:: Patient seen by the bedside,continue present treatment Reason For Visit: DIABETIC RIGHT FOOT INFECTION Physical Exam Vital Signs: Temp Pulse Resp BP Pulse Ox 98.7 F 83 17 144/92 H 98 03/11/19 16:00 03/11/19 16:00 03/11/19 16:00 03/11/19 18:00 03/11/19 16:00 Intake & Output 03/10/19 03/11/19 03/12/19 06:59 06:59 06:59 Intake Total 4013 4210 1400 Output Total 1950 Balance 2063 4210 1400 Weight 106.3 kg 106.3 kg General appearance: PRESENT: no acute distress Eye exam: PRESENT: PERRLA Respiratory exam: PRESENT: clear to auscultation theresa Cardiovascular exam: PRESENT: +S1, +S2 GI/Abdominal exam: PRESENT: soft Neurological exam: PRESENT: alert, CN II-XII grossly intact Results Laboratory Results: 03/10/19 21:41 03/08/19 09:04 03/10/19 21:41 WBC 5.2 RBC 4.17 L Hgb 11.2 L Hct 34.3 L MCV 82 MCH 26.8 L MCHC 32.6 RDW 12.2 Plt Count 391 Seg Neutrophils % 66.8 Lymphocytes % 14.8 Monocytes % 8.1 Eosinophils % 9.5 H Basophils % 0.8 Absolute Neutrophils 3.5 Absolute Lymphocytes 0.8 Absolute Monocytes 0.4 Absolute Eosinophils 0.5 Absolute Basophils 0.0 03/06/19 06:21 Blood Blood Culture - Final NO GROWTH IN 5 DAYS 03/06/19 04:35 Blood Blood Culture - Final NO GROWTH IN 5 DAYS Impressions: Foot X-Ray 03/06/19 04:01 IMPRESSION: Fracture involving the tip of the first distal phalanx with surrounding soft tissue swelling with subcutaneous emphysema. No definite radiographic evidence of osteomyelitis. copyright 2011 [employer] All Rights Reserved Assessment & Plan - Diagnosis (1) Diabetic foot infection Is this a current diagnosis for this admission?: Yes Plan: Continue IV antibiotic (2) Uncontrolled type 2 diabetes mellitus Qualifiers: Glycemic state: with hyperglycemia Qualified Code(s): E11.65 - Type 2 diabetes mellitus with hyperglycemia Is this a current diagnosis for this admission?: Yes
[2019-03-11] MEDS: HYDROCODONE/ACETAMINOPHEN 10-325 MG TABLET PO PRN (21:46)
[2019-03-12] MEDS: HYDROCODONE/ACETAMINOPHEN 10-325 MG TABLET PO PRN (04:13)
[2019-03-12] MEDS: AMPICILLIN SODIUM/SULBACTAM NA 3 GM in NORMAL SALINE 100 ML IV SCH ×2 (05:30→13:14)
[2019-03-12] MEDS: INSULIN LISPRO 100 UNIT/ML 3 ML VIAL SUBCUT SCH ×2 (08:11→12:18)
[2019-03-12] MEDS: METFORMIN HCL 500 MG TABLET PO SCH (08:25)
[2019-03-12] MEDS: SITAGLIPTIN PHOSPHATE 50 MG TABLET PO SCH (08:25)
[2019-03-12] MEDS ORDERED: VALSARTAN 160 MG TABLET PO SCH (10:00)
[2019-03-12] MEDS: FAMOTIDINE 20 MG TABLET PO SCH (10:42)
[2019-03-12] MEDS: ENOXAPARIN SODIUM INJ 40 MG/0.4 ML DISP.SYRIN SUBCUT SCH (10:42)
[2019-03-12] MEDS: NORMAL SALINE 1000 ML 1,000 ML IV PRN (10:48)
--- NOTE | 2019-03-12 13:05 | PDOC DISCHARGE SUMMARY ---
General - Admit/Disc Date/PCP Admission Date/Primary Care Provider: 03/06/19 08:08 RANJITH LYNN MD Discharge Date: 03/12/19 - Discharge Diagnosis (1) Diabetic foot infection Is this a current diagnosis for this admission?: Yes (2) Uncontrolled type 2 diabetes mellitus Is this a current diagnosis for this admission?: Yes (3) Osteomyelitis of great toe of right foot Is this a current diagnosis for this admission?: Yes (4) Gangrene of toe of right foot Is this a current diagnosis for this admission?: Yes (5) T2DM (type 2 diabetes mellitus) Is this a current diagnosis for this admission?: Yes - Additional Information Resuscitation Status: Full Code Discharge Diet: Diabetic Discharge Activity: Activity As Tolerated Prescriptions: Dapagliflozin Propanediol [Farxiga] 10 mg PO DAILY #90 tablet RX: Metformin HCl [Glucophage 500 mg Tablet] 1,000 mg PO BIDACBS #180 tablet RX: Sitagliptin Phosphate [Januvia 50 mg Tablet] 100 mg PO DAILY #30 tablet RX: Valsartan [Diovan 160 mg Tablet] 320 mg PO DAILY #90 tablet Home Medications: Dapagliflozin Propanediol [Farxiga] 10 mg PO DAILY #90 tablet 03/12/19 RX: Acetaminophen [Tylenol 325 mg Tablet] 650 mg PO Q4HP PRN tablet 03/12/19 RX: Metformin HCl [Glucophage 500 mg Tablet] 1,000 mg PO BIDACBS #180 tablet 03/12/19 RX: Sitagliptin Phosphate [Januvia 50 mg Tablet] 100 mg PO DAILY #30 tablet 03/12/19 RX: Valsartan [Diovan 160 mg Tablet] 320 mg PO DAILY #90 tablet 03/12/19 History of Present Illness History of Present Illness: CHERRIE YUAN JR is a 43 year old male, he was admitted on 03/06/2003/19/2019 when he presented with pain, swelling of the big toe of the right foot essentially he came in with a gangrenous toe Hospital Course Hospital Course: He was seen by the surgeon he underwent amputation of the big toe of the right foot, the culture grew polymicrobial organism as expected, he was treated with broad spectrum antibiotic, he underwent amputation, he has underlying osteomyelitis of the big toe of the right foot. He was treated with a wound VAC initially, the surgeon felt there was no need for him to be discharged home on the wound VAC, wet-to-dry dressing was recommended for discharge. Patient is poorly compliant with the management of his diabetes mellitus, he was started on new medication for his diabetes the blood pressure also was elevated. He does not follow-up regularly as recommended for his diabetes, he was last seen in the office August 2018 and at the time the hemoglobin A1c was more than 15, he did not follow-up in the office for proper management of his diabetes Physical Exam Vital Signs: Temp Pulse Resp BP Pulse Ox 98.3 F 87 20 148/84 H 98 03/12/19 04:00 03/12/19 08:15 03/12/19 08:15 03/12/19 08:15 03/12/19 08:15 Intake & Output 03/11/19 03/12/19 03/13/19 06:59 06:59 06:59 Intake Total 4210 2980 1100 Balance 4210 2980 1100 Weight 106.3 kg 106.2 kg General appearance: PRESENT: no acute distress Head exam: PRESENT: atraumatic, normocephalic Eye exam: PRESENT: PERRLA Ear exam: PRESENT: normal external ear exam Neck exam: PRESENT: full ROM Respiratory exam: PRESENT: clear to auscultation theresa Cardiovascular exam: PRESENT: RRR, +S1, +S2 Vascular exam: PRESENT: normal capillary refill GI/Abdominal exam: PRESENT: normal bowel sounds, soft Rectal exam: PRESENT: deferred Neurological exam: PRESENT: alert, CN II-XII grossly intact Psychiatric exam: PRESENT: appropriate affect, normal mood Skin exam: PRESENT: dry, intact, warm Results Laboratory Results: 03/10/19 21:41 03/08/19 09:04 Impressions: Foot X-Ray 03/06/19 04:01 IMPRESSION: Fracture involving the tip of the first distal phalanx with surrounding soft tissue swelling with subcutaneous emphysema. No definite radiographic evidence of osteomyelitis. copyright 2010 [employer]- All Rights Reserved Qualifiers - * PATIENT BEING DISCHARGED WITH ANY OF THE FOLLOWING DIAGNOSIS: No VTE patient discharged on overlapping Therapy?: No Reason(s) for not prescribing Overlap Therapy:: Not indicated Stroke Pt being discharged on Anti-thrombolytic therapy?: No Reason(s) for not prescribing Anti-thrombolytic therapy:: Not indicated Stroke Pt being discharged on Anti-coagulation therapy?: No Reason(s) for not prescribing Anti-coagulation therapy:: Not indicated Stroke Pt being discharged on Statins?: No Reason(s) for not prescribing Statins therapy:: Not indicated MD Pt being discharged on Aspirin therapy?: No Reason(s) for not prescribing Aspirin therapy:: Not indicated MD Pt being discharged on Statins?: No Reason(s) for not prescribing Statin therapy:: Not indicated MD Pt discharged ACEI/ARBS?: No Reason(s) for not prescribing ACEI/ARBS:: Not indicated Acute Heart Failure - Is this a Heart Failure Patient?: No e) For LVEF <35%, discharged on Aldosterone antagonist?: N/A (LVEF > or = 35%)
[2019-03-12 13:51] VITALS: BP 140/81
== END 2019-03-12 15:20 | disposition home or self-care (01) | DRG 617 ==
LOC: ER 01:29 → EH 08:08 → 4N 15:35
PROVIDERS: ADMIT Internal Medicine; ATTEND Internal Medicine
PROC: 0Y6P0Z0 Detachment at Right 1st Toe, Complete, Open Approach (ICD-10-PCS; principal; 2019-03-06 13:45)
DX: E11.621 Type 2 diabetes mellitus with foot ulcer (principal); E11.52 Type 2 diabetes mellitus with diabetic peripheral angiopathy with gangrene; I96 Gangrene, not elsewhere classified; M86.171 Other acute osteomyelitis, right ankle and foot; E11.40 Type 2 diabetes mellitus with diabetic neuropathy, unspecified; E78.5 Hyperlipidemia, unspecified; F17.200 Nicotine dependence, unspecified, uncomplicated; Z79.4 Long term (current) use of insulin; L97.511 Non-pressure chronic ulcer of other part of right foot limited to breakdown of skin; E11.65 Type 2 diabetes mellitus with hyperglycemia; B95.1 Streptococcus, group B, as the cause of diseases classified elsewhere; B95.61 Methicillin susceptible Staphylococcus aureus infection as the cause of diseases classified elsewhere; E66.9 Obesity, unspecified; B96.4 Proteus (mirabilis) (morganii) as the cause of diseases classified elsewhere
CPT/HCPCS: 01480; 36415; 80048; 80053; 80061; 80202; 81001; 82565; 82962; 83036; 85025; 87040; 87070; 87075; 87077; 87186; 87205; 88305; 88311; 93005; 93010; 96365; 96366; 96375; 99285; J0295; J0692; J1650; J1815; J1885; J2250; J2270; J2405; J2704; J3010; J3370; J3490; J7030; J7050; J7060

== ENCOUNTER → 2019-05-18 | Outpatient (CLI) | payer OTHER ==
--- NOTE | 2019-05-19 08:48 | XCELERA REPORT ---
[address] [address] Lower Extremity Venous Evaluation Procedure: A bilateral duplex scan of the lower extremity veins was performed. The evaluation included responses to compression and other maneuvers with patient in the supine and standing positions to assess venous insufficiency. Right Sided Venous Evaluation Deep venous system evaluation shows patent veins with no significant reflux identified. Saphena Femoral junction: no reflux. Greater Saphenous vein, Proximal thigh: reflux: 1 second reflux.5 mm diameter. Greater Saphenous vein, mid thigh: reflux:no reflux. Greater Saphenous vein, Distal thigh: reflux:no reflux. Greater Saphenous vein, Proximal below knee: reflux: none Greater Saphenous vein, Mid below knee: reflux: none. Greater Saphenous vein, Distal below knee: reflux: no reflux. No significant Perforators identified. Left Sided Venous Evaluation Deep venous system evaluation shows patent veins with no significant reflux identified. Sapheno Femoral junction: no reflux. Greater Saphenous vein, Proximal thigh: reflux: no reflux. Greater Saphenous vein, mid thigh: reflux:no reflux. Greater Saphenous vein, Distal thigh: reflux:no reflux. Greater Saphenous vein, Proximal below knee: reflux: none Greater Saphenous vein, Mid below knee: reflux: none. Greater Saphenous vein, Distal below knee: reflux: no reflux. No significant Perforators identified. Interpretation Summary No duplex evidence of DVT or obstruction in the bilateral lower extremities. Very limited area of superficial reflux noted in the right Greater Saphenous vein. Otherwise no deep or superficial reflux. Name: CHERRIE YUAN JR Age: 44 yrs Gender: Male : 1975 Patient Status: Outpatient Patient Location: Study Date: 05/18/2019 01:45 PM Reason For Study: RT FOOT ULCER Ordering Physician: SUSIE TIM Performed By: Brando Solomon : SUSIE TIM > Glenn Reyes
--- NOTE | 2019-05-19 08:50 | XCELERA REPORT ---
[address] [address] Lower Extremity Arterial Evaluation Name: CHERRIE YUAN JR Age: 44 yrs Gender: Male : 1975 Patient Status: Outpatient Patient Location: Study Date: 05/18/2019 01:23 PM Procedure: A color flow and duplex scan of the lower extremity arteries was performed bilaterally with velocity and waveform anaylsis. Ankle brachial indicies performed. Reason For Study: RT FOOT ULCER Ordering Physician: SUSIE TIM Performed By: Brando Solomon Measurements and Calculations Right Left FINANCIAL AID OFFICER PSV 124.0 114.7 cm/sec Prox PFA PSV -72.5 79.1 cm/sec Prox SFA PSV 103.1 119.4 cm/sec Mid SFA PSV -110.8 -92.6 cm/sec Dist SFA PSV -100.9 -70.7 cm/sec Prox Pop A PSV 80.0 84.0 cm/sec Dist JANES PSV 120.1 78.6 cm/sec Dist HEAD OPERATOR SULFIDE PSV -94.3 83.0 cm/sec Jose Pedis PSV 88.6 86.0 cm/sec Right Side Arterial Evaluation Normal velocity and triphasic waveforms noted from the Common Femoral artery to the infrageniculate vessels . Ankle Brachial index 1.33. Left Side Arterial Evaluation Normal velocity and triphasic waveforms noted from the Common Femoral artery to the infrageniculate vessels . Ankle Brachial index 1.27. Interpretation Summary No hemodynamically significant lesions in the bilateral lower extremities, on duplex imaging, at rest. : SUSIE TIM > Glenn Reyes
== END ==
LOC: SP 13:09
PROVIDERS: ATTEND Preventive Medicine Undersea and Hyperbaric Medicine
DX: E11.621 Type 2 diabetes mellitus with foot ulcer (principal); L97.512 Non-pressure chronic ulcer of other part of right foot with fat layer exposed
CPT/HCPCS: 93922; 93925; 93970